=== PATIENT | male | born 1935 | race Caucasian/White ===

== ENCOUNTER 2018-05-09 07:54 | Day surgery (SDC) | payer OTHER, MEDICARE ==
[2018-05-09 08:16] VITALS: BMI 20.5
[2018-05-09] MEDS ORDERED: FLUCONAZOLE 100 MG IVPB ONE (11:15)
[2018-05-09] MEDS ORDERED: PROPOFOL 20 ML ONE (11:18)
[2018-05-09] MEDS ORDERED: ceFAZolin SODIUM 1 GM VIAL IVPB ONE (11:21)
[2018-05-09] MEDS ORDERED: FLUCONAZOLE 100 MG/D5W 50 ML IVPB ONE (11:30)
[2018-05-09] MEDS ORDERED: GENTAMICIN SO4 80 MG/2 ML VIAL ONE (12:02)
[2018-05-09] MEDS ORDERED: oxyCODONE HCL 5 MG TABLET PO PRN (12:04)
--- NOTE | 2018-05-09 12:06 | OP ---
Operative Note - Note: Operative Date: 05/09/18 Pre-Operative Diagnosis: left hydronephrosis, retained left stent Operation: cysto/retrograde/stent removal Findings: tortuous hydronephrotic left ureter Post-Operative Diagnosis: Same as Pre-op Surgeon: Barry De Jesus Anesthesia: General Specimens Removed: stent Estimated Blood Loss (mls): 1 Operative Report Dictated: Yes
[2018-05-09] MEDS ORDERED: ELECTROLYTE-148 SOLN 1,000 ML IV SCH (12:15)
[2018-05-09] MEDS ORDERED: ONDANSETRON 4 MG/2 ML VIAL IVPUSH PRN (12:20)
[2018-05-09] MEDS ORDERED: LACTATED RINGERS SOLUTION 1,000 ML IV SCH (12:30)
--- NOTE | 2018-05-09 12:34 | OP ---
DATE OF OPERATION: 05/09/2018 PREOPERATIVE DIAGNOSIS: Left hydronephrosis. POSTOPERATIVE DIAGNOSIS: Left hydronephrosis with tortuous left ureter. PROCEDURE: Cystoscopy, retrograde pyelogram, ureteral stent removal. SURGEON: Barry De Jesus MD INDICATION: Patient is an 82-year-old male who had a left ureteral stent placed at some point in the past. Patient does not really know exactly when, thought it was about a year ago. He thought it was at [facility], but after requesting records there was no record of him having any such procedure at that hospital. A scan showed that he has left hydronephrosis and an indwelling stent. The purpose of the procedure today was to remove his old stent and do retrograde pyelogram to determine the cause of hydronephrosis and possible ureteroscopy to determine potential need for an additional stent since the stent was in there already too long. After informed consent was obtained patient taken to the OR and placed supine on the table. After cardiac monitoring administered general anesthesia established. He was prepped and draped in dorsal lithotomy position. His urine culture preoperatively was negative. Cystoscope was introduced without difficulty. The anterior urethra is normal. The bladder was then visualized. A stent was seen emanating from the left ureteral orifice. The bladder appeared erythematous consistent with a chronic indwelling stent. A glidewire was passed alongside the stent but could not be advanced into the left renal pelvis due to multiple tortuosities. Over the guidewire a 5-[place] catheter was advanced to inject some contrast and there is significant tortuosity of the ureter preventing the wire to be advanced. At this point it was determined to try and see if the tortuosities would straighten out with removal of the existing stent so the grasper was used to remove the existing stent and then again attempts at gently advancing the glidewire were unsuccessful because the wire never made it to the left renal pelvis due to the multiple tortuosities in the left ureter. This was confirmed with contrast injection for a retrograde pyelogram showing all the tortuosities. There was no evidence of extravasation. At this point it was determined that patient would be observed and it he developed any fever or flank pain to then plan for nephrostomy tube placement. Patient was then awoken from anesthesia and transferred to the recovery room in stable condition. There were no complications. Estimated blood loss was minimal. Olman CHAMBERS/[id number] MTDD
[2018-05-09] MEDS ORDERED: ACETAMINOPHEN INJECTION 100 ML IVPB ONE (13:04)
[2018-05-09] MEDS ORDERED: ACETAMINOPHEN 1000 MG/100 ML VIAL (NON FORMULARY) IVPB ONE (13:15)
[2018-05-09 14:40] VITALS: PULSE 66; TEMP 97.6
[2018-05-09 16:16] VITALS: BP 164/70
--- NOTE | 2018-05-10 15:01 | PATH ---
Surgical Pathology Report Patient Name: DANDY PISANO Med. Rec. #: [id number] /Age/Gender: 1935 (Age: 82) / M Account: [id number] Location: [facility] Taken: 05/09/2018 Received: 05/09/2018 Reported: 05/10/2018 Physicians: Barry De Jesus M.D. Specimen(s) Received LEFT URETERAL STENT Clinical History Hydronephrosis Final Diagnosis URETERAL STENT, LEFT, REMOVAL: URETERAL STENT. MACROSCOPIC DIAGNOSIS. Electronically Signed Sarah Burnham M.D. Gross Description Received fresh labeled "left ureteral stent," is a 38 cm in length blue, coiled portion of tubing, consistent with a ureteral stent. No soft tissue is present. No sections are submitted, gross only. /05/09/2018 [facility]05/09/2018
== END 2018-05-09 16:00 | disposition home or self-care (01) ==
LOC: JASU-SURG 07:54
PROVIDERS: ATTEND Urology
PROC: 0TP98DZ Removal of Intraluminal Device from Ureter, Via Natural or Artificial Opening Endoscopic (ICD-10-PCS; principal; 2018-05-09 11:30)
PROC: BT1FYZZ Fluoroscopy of Left Kidney, Ureter and Bladder using Other Contrast (ICD-10-PCS; 2018-05-09 11:30)
DX: N13.8 Other obstructive and reflux uropathy (principal)
CPT/HCPCS: 76000-TC-FY; 88300-TC; 94760; J0131